=== PATIENT | male | born 1995 | race Two or more races ===

== ENCOUNTER → 2017-06-02 | Outpatient (REF) | payer OTHER | LOC: M SFHCLERA 18:28 | PROVIDERS: ATTEND Physician Assistant | DX: K12.0 Recurrent oral aphthae (principal) ==

== ENCOUNTER → 2017-07-02 | Outpatient (CLI) | payer OTHER ==
[2017-07-02 19:30] LABS: BASO # 0.1 10^3/uL (0.0-0.2); BASO % 0.6 % (0.0-1.0); EOS # 0.1 10^3/uL (0.0-0.50); EOS % 1.2 % (0.0-3.0); IMMATURE GRANULOCYTE % 0.2 % (0-0); LYMPH # 3.4 10^3/uL (1.5-6.5); LYMPH % 35.3 % (24.0-44.0); MEAN CORPUSCULAR HEMOGLOBIN 30.8 pg (27.0-33.0); MEAN CORPUSCULAR HGB CONC 33.2 g/dl (32.0-36.5); MEAN CORPUSCULAR VOLUME 92.7 fl (80.0-96.0); MONO % 10.7 % (0.0-5.0); PLATELET COUNT, AUTOMATED 240 10^3/uL (150-450); RED CELL DISTRIBUTION WIDTH 12.2 % (11.5-14.5); WHITE BLOOD COUNT 9.6 10^3/uL (4.0-10.0)
[2017-07-02 19:46] LABS: ALBUMIN 3.8 GM/DL (3.2-5.2); ALBUMIN/GLOBULIN RATIO 1.03 (1.00-1.93); ALKALINE PHOSPHATASE 146 U/L (45-117); ALT/SGPT 72 U/L (12-78); ANION GAP 4 MEQ/L (8-16); AST/SGOT 35 U/L (7-37); BILIRUBIN,TOTAL 0.8 MG/DL (0.2-1.0); BLOOD UREA NITROGEN 13 MG/DL (7-18); CALCIUM LEVEL 9.1 MG/DL (8.5-10.1); CARBON DIOXIDE LEVEL 31 MEQ/L (21-32); CHLORIDE LEVEL 104 MEQ/L (98-107); CREATININE FOR GFR 1.03 MG/DL (0.70-1.30); GLOMERULAR FILTRATION RATE > 60.0 (>60); GLUCOSE, FASTING 78 MG/DL (70-105); POTASSIUM SERUM 4.6 MEQ/L (3.5-5.1); SODIUM LEVEL 139 MEQ/L (136-145); TOTAL PROTEIN 7.5 GM/DL (6.4-8.2)
== END ==
LOC: M LRY 15:32
PROVIDERS: ATTEND Nurse Practitioner Family
DX: R19.5 Other fecal abnormalities (principal)

== ENCOUNTER → 2017-07-02 | Outpatient (CLI) | payer OTHER | LOC: M LRY 15:29 | PROVIDERS: ATTEND Nurse Practitioner Family | DX: R19.5 Other fecal abnormalities (principal) ==

== ENCOUNTER → 2017-07-02 | Outpatient (REF) | payer OTHER | LOC: M SFHCLERA 15:01 | PROVIDERS: ATTEND Nurse Practitioner Family | DX: R19.5 Other fecal abnormalities (principal); Z53.9 Procedure and treatment not carried out, unspecified reason ==

== ENCOUNTER → 2017-07-02 | Outpatient (CLI) | payer OTHER ==
--- NOTE | 2017-07-02 15:29 | REP ---
Clinical: Abnormal changes in bowel habits. Technique: Upright view of the chest with supine and upright views of the abdomen and pelvis. Findings: Frontal upright view of the chest demonstrates no acute cardiopulmonary process or free air below the diaphragm to suspect pneumoperitoneum. Supine and upright views of the abdomen and pelvis demonstrate nonspecific bowel gas pattern without obstruction or perforation. No organomegaly. No abnormal calcifications. Skeletal structures normal for age. Impression: Nonspecific bowel gas pattern. Signed by Morris Jose MD 07/02/2017 03:21 P
== END ==
LOC: M LRY 14:47
PROVIDERS: ATTEND Nurse Practitioner Family
DX: R19.5 Other fecal abnormalities (principal)

== ENCOUNTER → 2017-07-03 | Outpatient (REF) | payer OTHER | LOC: M SFHCLUC 16:38 | PROVIDERS: ATTEND Nurse Practitioner Family | DX: R19.5 Other fecal abnormalities (principal) ==

== ENCOUNTER → 2017-08-20 | Outpatient (CLI) | payer OTHER | LOC: M LRY 10:04 | DX: S99.921A Unspecified injury of right foot, initial encounter (principal); X58.XXXA Exposure to other specified factors, initial encounter; Y92.89 Other specified places as the place of occurrence of the external cause; Y93.89 Activity, other specified | CPT/HCPCS: 73660 ==

== ENCOUNTER → 2020-07-26 | Outpatient (CLI) | payer SELFPAY | LOC: M LABCAHC 17:35 | PROVIDERS: ATTEND Pediatrics | DX: Z11.59 Encounter for screening for other viral diseases (principal) ==

== ENCOUNTER → 2020-09-08 | Outpatient (CLI) | payer BC | LOC: M LABSMTC 11:57 | PROVIDERS: ATTEND Pediatrics | DX: Z20.822 Contact with and (suspected) exposure to COVID-19 (principal) ==

== ENCOUNTER → 2021-08-01 | Outpatient (CLI) | payer BC ==
[2021-08-01 17:52] LABS: CHOLESTEROL RISK RATIO 2.56 (<5)
== END ==
LOC: M PLALAB 14:57
DX: F25.0 Schizoaffective disorder, bipolar type (principal); F31.89 Other bipolar disorder

== ENCOUNTER → 2021-08-14 | Outpatient (REF) | LOC: M LABSMTC 10:09 | PROVIDERS: ATTEND Pediatrics | DX: Z20.822 Contact with and (suspected) exposure to COVID-19 (principal) ==